=== PATIENT | male | born 1965 | race Two or more races ===

== ENCOUNTER 2019-03-17 14:57 | Emergency (ER) | payer OTHER ==
[~2019-03-17] VITALS: Ht 172.7 cm; Wt 68.0 kg
[2019-03-17 15:07] VITALS: BP 138/94
[2019-03-17] MEDS ORDERED: LORazepam 2MG/ML-1ML VIAL IV ONE (16:00)
[2019-03-17 16:13] LABS: Albumin 3.4 g/dL (3.4-5.0); Calcium 8.3 mg/dL (8.5-10.1); Potassium 3.3 mmol/L (3.5-5.1)
[2019-03-17 16:16] LABS: BUN/Creatinine Ratio 17.9; Bilirubin, Total 0.3 mg/dL (0.2-1.0); Total Protein 7.3 g/dL (6.4-8.2)
[2019-03-17 16:28] LABS: Acetaminophen < 2.0 ug/mL (10-30); Salicylate 3.5 mg/dL (2.8-20.0)
[2019-03-17 16:46] LABS: Basophils # (auto) 0.1 uL; Eosinophils # (auto) 0.1 uL; Hemoglobin 13.1 g/dL (13.5-17.5); Monocytes # (auto) 0.8 uL; Neutrophils # (auto) 4.2 uL; Nucleated Red Blood Cells % 0.1 %
[2019-03-17 16:51] LABS: Basophils % (auto) 1.7 % (0.0-2.0); Eosinophils % (auto) 1.6 % (0.0-7.0); Hematocrit 39.9 % (41.0-53.0); Lymphocytes % (auto) 27.4 % (10.0-50.0); Mean Corpuscular Hgb Conc. 32.8 g/dL (32.0-36.0); Mean Corpuscular Volume 79.4 fL (80.0-100.0); Monocytes % (auto) 11.2 % (0.0-12.0); Neutrophils % (auto) 58.1 % (37.0-80.0); Platelet Count (auto) 546 10^3/uL (140-450); Red Blood Cells 5.03 10^6/uL (4.5-5.90); Red Cell Distribution Width 17.3 % (11.8-14.3); White Blood Cell 7.3 10^3/uL (4.4-10.8)
== END 2019-03-17 18:54 | disposition left against medical advice (07) ==
LOC: EDBD 14:57 → ER 14:57
DX: S61.512A Laceration without foreign body of left wrist, initial encounter (principal); R45.851 Suicidal ideations; Z53.21 Procedure and treatment not carried out due to patient leaving prior to being seen by health care provider; X58.XXXA Exposure to other specified factors, initial encounter; Y93.89 Activity, other specified; Y99.8 Other external cause status; Y92.89 Other specified places as the place of occurrence of the external cause
CPT/HCPCS: 36415; 71045; 80053; 80320; 80329; 85025; 99281; J2060; 96374